=== PATIENT | female | born 1960 ===

== ENCOUNTER 2020-08-28 12:18 | Outpatient (REF) | payer SELFPAY ==
[2020-08-28 13:18] LABS: Cholesterol 243 mg/dL
[2020-08-29 04:22] LABS: SARS COV2 IgG Positive (Negative)
== END 2020-08-28 12:19 | disposition home or self-care (01) ==
LOC: HO.LNC 12:18
PROVIDERS: Visit Provider Pathology Anatomic Pathology & Clinical Pathology
DX: Z01.84 Encounter for antibody response examination (principal); Z79.899 Other long term (current) drug therapy
CPT/HCPCS: 82465; 86769